=== PATIENT | female | born 1990 | race Caucasian/White ===

== ENCOUNTER 2021-03-09 20:16 | Emergency (ER) | payer BC ==
[~2021-03-09] VITALS: Ht 175 cm; Wt 77.0 kg
--- NOTE | 2021-03-09 20:56 | ED EENT ---
History of Present Illness General Chief Complaint: Laceration Stated Complaint: CUT LIP Nursing Triage Note: PT ARRIVED TO ER FROM HOME VIA POV WITH SISTER AT BEDSIDE. PT WAS PREPARING DINNER WHEN HER 5YO SON SCARED HER AND WHEN SHE REACTED SHE CUT HER UPPER LIP KNIFE. PT DENIES ANY PAIN. APPROX 1 CM ON UPPER LIP LEFT LATERAL SIDE. Source: patient Exam Limitations: no limitations History of Present Illness Date Seen by Provider: Mar 09, 2021 Time Seen by Provider: 20:55 Initial Comments Patient was preparing dinner for her 5-year-old son when he came up and scared her, she was using a knife at the time and accidentally jerked and cut the left side of her top lip. Tetanus is up-to-date. Timing/Duration: abrupt Severity: mild Location: facial Prearrival Treatment: no prearrival treatment Associated Symptoms: denies symptoms Allergies and Home Medications Patient Home Medication List Home Medication List Reviewed: Yes Review of Systems Review of Systems Constitutional: see HPI Eyes: No Symptoms Reported Ears: No Symptoms Reported Nose: no symptoms reported Mouth: see HPI Throat: no symptoms reported Respiratory: no symptoms reported Cardiovascular: no symptoms reported Musculoskeletal: no symptoms reported Physical Exam Vital Signs Vital Signs - First Documented 03/09/21 20:30 Temp 36.3 Pulse 104 Resp 16 B/P (MAP) 142/99 (113) Pulse Ox 96 O2 Delivery Room Air Height, Weight, BMI Height: '" Weight: lbs. oz. kg; 25.00 BMI Method: General Appearance: WD/WN, no apparent distress Eyes: bilateral eye normal inspection, bilateral eye PERRL, bilateral eye EOMI Ears: bilateral ear auricle normal, bilateral ear canal normal, bilateral ear TM normal Mouth/Throat: other (There is a 0.5 cm laceration at the vermilion border left side of the lip. This was anesthetized with 0.5 mL of 1% lidocaine without epinephrine. Then this was closed with 2 simple interrupted sutures size 6-0 Prolene.) Neck: non-tender, full range of motion Respiratory: no respiratory distress, no accessory muscle use Neurologic/Psychiatric: alert, normal mood/affect, oriented x 3 Skin: normal color, warm/dry (Change) Progress/Results/Core Measures Results/Orders Vital Signs/I&O 03/09/21 20:30 Temp 36.3 Pulse 104 Resp 16 B/P (MAP) 142/99 (113) Pulse Ox 96 O2 Delivery Room Air Blood Pressure Mean: 113 Departure Impression Primary Impression: Lip laceration Disposition: 01 HOME, SELF-CARE Condition: Stable Departure-Patient Inst. Decision time for Depature: 20:55 Patient Instructions: Laceration Repair With Stitches (DC) Add. Discharge Instructions: return to ER to have the stitches removed in about 5 days. You can shower letting water run over the starting this evening. All discharge instructions reviewed with patient and/or family. Voiced understanding. JOO GARD[employer] Mar 09, 2021 20:56
[2021-03-09 21:05] VITALS: BP 142/99
== END 2021-03-09 21:05 | disposition home or self-care (01) ==
LOC: ER 20:19
DX: S01.511A Laceration without foreign body of lip, initial encounter (principal); W26.0XXA Contact with knife, initial encounter
CPT/HCPCS: 12011

== ENCOUNTER 2021-03-15 07:56 | Emergency (ER) | payer BC ==
[~2021-03-15] VITALS: Ht 175 cm; Wt 77.0 kg
[2021-03-15 08:05] VITALS: BP 135/86
== END 2021-03-15 08:14 | disposition home or self-care (01) ==
LOC: EDUNIT# 07:56 → ER 07:58
DX: Z48.02 Encounter for removal of sutures (principal)